=== PATIENT | female | born 1945 | race Caucasian/White ===

== ENCOUNTER 2022-12-26 10:23 | Emergency (ER) | payer OTHER, MEDICAID ==
[~2022-12-26] VITALS: Ht 162.6 cm; Wt 90.7 kg
[2022-12-26] MEDS ORDERED: MORPHINE SULFATE 4 MG/ML SYR IM ONE (10:25)
[2022-12-26 10:27] VITALS: BP 96/38
--- NOTE | 2022-12-26 10:34 | NUR ---
X-Ray at bedside.
[2022-12-26] MEDS ORDERED: AZIT250T4 PO (11:07)
--- NOTE | 2022-12-26 11:16 | NUR ---
SPOKE TO STAFF OF [facility], INFORMED OF PT STATUS AND DISCHARGE HOME.
--- NOTE | 2022-12-26 19:30 | NUR ---
Patient resting in bed, A/Ox4, chest rise and fall symmetrical, no c/o pain or s/s of distress.
[2022-12-26 19:36] VITALS: BP 112/67
--- NOTE | 2022-12-26 19:40 | NUR ---
Patient discharged with v/s stable. Written and verbal after care instructions given and explained. Patient alert, oriented and verbalized understanding of instructions. [facility] with patient to shelter. Report given to [facility] staff, no further questions from [facility] staff. All questions addressed prior to discharge. ID band removed. Patient advised to follow up with PMD. Rx given to patient and [facility]. Patient educated on indication of medication including possible reaction and side effects. Opportunity to ask questions provided and answered.
== END 2022-12-26 19:33 | disposition home or self-care (01) ==
LOC: MED 10:23
DX: M54.6 Pain in thoracic spine (principal); J18.9 Pneumonia, unspecified organism; E11.9 Type 2 diabetes mellitus without complications; I10 Essential (primary) hypertension; N18.9 Chronic kidney disease, unspecified; Z79.4 Long term (current) use of insulin; Z79.899 Other long term (current) drug therapy
CPT/HCPCS: 71045; 96372; 99283; J2270; Q0092